=== PATIENT | female | born 1930 | race African-American/Black ===

== ENCOUNTER 2016-06-07 16:51 | Emergency (ER) | payer MEDICARE, BC ==
[~2016-06-07] VITALS: Ht 152.4 cm; Wt 80.0 kg
[~2016-06-07 16:51] MED LIST: AMLO10TA80 PO; ASPI-1035 PO; CLON-457 PO; POTA10TA20 PO; PRED5DRO7 EACHEYE
[2016-06-07 16:55] VITALS: BP 191/90
== END 2016-06-07 22:00 | disposition left against medical advice (07) ==
LOC: ER 21:13
DX: R51 Headache (principal); I10 Essential (primary) hypertension; M79.602 Pain in left arm; M79.605 Pain in left leg; M79.604 Pain in right leg; Z88.0 Allergy status to penicillin; W01.0XXA Fall on same level from slipping, tripping and stumbling without subsequent striking against object, initial encounter; Y92.098 Other place in other non-institutional residence as the place of occurrence of the external cause
CPT/HCPCS: 70450; 99284

== ENCOUNTER 2018-09-25 20:25 | Inpatient (IN) | payer MEDICARE, BC ==
[~2018-09-25] VITALS: Ht 160 cm; Wt 71.2 kg
[2018-09-25 20:25] VITALS: BP 125/77
[~2018-09-25 20:25] MED LIST changes: +AMLO5TAB88 PO; -ASPI-1035 PO; +ASPI-1158 PO; +OLME40TA18 PO
[2018-09-25 21:24] VITALS: BP 125/77
[2018-09-25] MEDS ORDERED: CLONIDINE 0.1MG TABLET PO PRN (21:45)
[2018-09-25] MEDS: CLONIDINE 0.1MG TABLET PO SCH (22:00)
[2018-09-25] MEDS: LACTULOSE 20G/30ML UDC PO SCH (23:00)
[2018-09-25] MEDS: POLYETHYLENE GLYCOL 3350 (17GM) 1 DOSE PACK PO SCH (23:00)
[2018-09-25] MEDS: AMLODIPINE 5MG TABLET PO SCH (23:01)
[2018-09-25] MEDS: ACETAMINOPHEN 325MG TABLET PO PRN (23:30)
[2018-09-26] MEDS: ACETAMINOPHEN 325MG TABLET PO PRN ×3 (03:44→22:20)
[2018-09-26] MEDS: LACTULOSE 20G/30ML UDC PO SCH ×3 (06:10→21:21)
[2018-09-26] MEDS: CLONIDINE 0.1MG TABLET PO SCH ×3 (06:25→21:18)
[2018-09-26 08:19] LABS: HEMATOCRIT. 32.6 % (36.0-48.0); HEMOGLOBIN. 10.9 g/dL (12.0-16.0); MEAN CORPUSCULAR HEMOGLOBIN 30.4 pg (28.0-32.0); MEAN CORPUSCULAR VOLUME 91.3 fL (81.0-99.0); MEAN PLATELET VOLUME 8.7 fl (7.4-10.4); PLATELET 259 x1000/uL (130-400); RED BLOOD CELL COUNT 3.57 mill/uL (4.2-5.4)
[2018-09-26 08:20] VITALS: BP 164/70
[2018-09-26 08:28] LABS: CHLORIDE 103 mEq/L (98-107)
[2018-09-26] MEDS: LOSARTAN POTASSIUM 100 MG TABLET PO SCH (08:59)
[2018-09-26] MEDS: FAMOTIDINE 20MG TABLET PO SCH (08:59)
[2018-09-26] MEDS: CLOPIDOGREL 75MG TABLET PO SCH (08:59)
[2018-09-26] MEDS: AMLODIPINE 5MG TABLET PO SCH ×2 (08:59→21:20)
[2018-09-26] MEDS: DOCUSATE SODIUM 100MG CAPSULE PO SCH ×2 (08:59→17:15)
[2018-09-26] MEDS: ENOXAPARIN 30MG/0.3ML SYR SUBCUT SCH (09:00)
[2018-09-26 15:18] LABS: PLATELET ESTIMATE NORMAL
[2018-09-26] MEDS: CEFTRIAXONE 1 G PREMIX 50 ML IV SCH (18:23)
[2018-09-26 20:00] VITALS: BP 123/54
[2018-09-26] MEDS: POLYETHYLENE GLYCOL 3350 (17GM) 1 DOSE PACK PO SCH (21:00)
[2018-09-27] MEDS: LACTULOSE 20G/30ML UDC PO SCH ×3 (05:31→21:19)
[2018-09-27] MEDS: CLONIDINE 0.1MG TABLET PO SCH ×3 (05:31→21:12)
[2018-09-27 08:10] VITALS: BP 134/54
[2018-09-27] MEDS: DOCUSATE SODIUM 100MG CAPSULE PO SCH (09:00)
[2018-09-27] MEDS: DOCUSATE SODIUM 250MG CAPSULE PO SCH (09:30)
[2018-09-27] MEDS: CLOPIDOGREL 75MG TABLET PO SCH (09:52)
[2018-09-27] MEDS: AMLODIPINE 5MG TABLET PO SCH ×2 (09:52→21:12)
[2018-09-27] MEDS: LOSARTAN POTASSIUM 100 MG TABLET PO SCH (09:52)
[2018-09-27] MEDS: FAMOTIDINE 20MG TABLET PO SCH (09:54)
[2018-09-27] MEDS: ENOXAPARIN 30MG/0.3ML SYR SUBCUT SCH (09:55)
[2018-09-27] MEDS: TRAMADOL 50MG TABLET PO PRN (14:09)
[2018-09-27] MEDS: CEFTRIAXONE 1 G PREMIX 50 ML IV SCH (18:33)
[2018-09-27 20:00] VITALS: BP 169/66
[2018-09-27] MEDS: POLYETHYLENE GLYCOL 3350 (17GM) 1 DOSE PACK PO SCH (21:00)
[2018-09-27 22:00] VITALS: BP 138/59
[2018-09-27 23:56] LABS: CLARITY URINE CLEAR (CLEAR); COLOR URINE YELLOW (YELLOW); KETONES URINE NEGATIVE (NEGATIVE); LEUKOCYTE ESTERASE URINE 2+ (NEGATIVE); NITRITE URINE NEGATIVE (NEGATIVE); OCCULT BLOOD URINE NEGATIVE (NEGATIVE); PH URINE 5.5 (4.5-8.0); PROTEIN URINE 1+ (NEGATIVE); SPECIFIC GRAVITY URINE 1.018 (1.005-1.030); UROBILINOGEN URINE 0.2 E.U./dL (0.2-1.0)
[2018-09-28] MEDS: LACTULOSE 20G/30ML UDC PO SCH ×3 (05:39→22:00)
[2018-09-28] MEDS: CLONIDINE 0.1MG TABLET PO SCH ×3 (05:39→23:55)
[2018-09-28] MEDS: TRAMADOL 50MG TABLET PO PRN ×2 (06:25→23:56)
[2018-09-28 07:53] LABS: HEMATOCRIT. 31.8 % (36.0-48.0); HEMOGLOBIN. 10.6 g/dL (12.0-16.0); MEAN CORPUSCULAR HEMOGLOBIN 30.8 pg (28.0-32.0); MEAN CORPUSCULAR VOLUME 91.9 fL (81.0-99.0); MEAN PLATELET VOLUME 8.4 fl (7.4-10.4); PLATELET 256 x1000/uL (130-400); RED BLOOD CELL COUNT 3.45 mill/uL (4.2-5.4); RED CELL DISTRIBUTION WIDTH 13.8 % (11.6-14.6)
[2018-09-28 08:07] VITALS: BP 132/58
[2018-09-28] MEDS: AMLODIPINE 5MG TABLET PO SCH ×2 (08:30→21:44)
[2018-09-28] MEDS: LOSARTAN POTASSIUM 100 MG TABLET PO SCH (08:30)
[2018-09-28] MEDS: CLOPIDOGREL 75MG TABLET PO SCH (08:30)
[2018-09-28] MEDS: FAMOTIDINE 20MG TABLET PO SCH (08:30)
[2018-09-28] MEDS: ENOXAPARIN 30MG/0.3ML SYR SUBCUT SCH (08:31)
[2018-09-28] MEDS: DOCUSATE SODIUM 250MG CAPSULE PO SCH (08:31)
[2018-09-28 09:02] LABS: PHOSPHORUS 3.5 mg/dL (2.5-4.9)
[2018-09-28 09:12] LABS: PLATELET ESTIMATE NORMAL
[2018-09-28] MEDS ORDERED: ALBUTEROL 6.7GM HFA INHALER ORI PRN (09:30)
[2018-09-28] MEDS ORDERED: ALBUTEROL (0.083%) 2.5MG/3ML NEB HHN PRN (09:45)
[2018-09-28 10:23] LABS: FOLIC ACID (FOLATE) SERUM 16.8 ng/mL (>5.38)
[2018-09-28] MEDS: CEFTRIAXONE 1 G PREMIX 50 ML IV SCH (16:46)
[2018-09-28 20:00] VITALS: BP 141/57
[2018-09-28] MEDS: POLYETHYLENE GLYCOL 3350 (17GM) 1 DOSE PACK PO SCH (21:44)
[2018-09-29] MEDS: CLONIDINE 0.1MG TABLET PO SCH ×3 (05:46→22:56)
[2018-09-29] MEDS: LACTULOSE 20G/30ML UDC PO SCH ×3 (05:46→22:55)
[2018-09-29 08:20] VITALS: BP 126/58
[2018-09-29] MEDS: ENOXAPARIN 30MG/0.3ML SYR SUBCUT SCH (08:57)
[2018-09-29] MEDS: FAMOTIDINE 20MG TABLET PO SCH (08:57)
[2018-09-29] MEDS: CLOPIDOGREL 75MG TABLET PO SCH (08:57)
[2018-09-29] MEDS: DOCUSATE SODIUM 250MG CAPSULE PO SCH (08:58)
[2018-09-29] MEDS: AMLODIPINE 5MG TABLET PO SCH ×2 (08:58→21:59)
[2018-09-29] MEDS: LOSARTAN POTASSIUM 100 MG TABLET PO SCH (08:59)
[2018-09-29 12:28] LABS: BASOPHILS % 1.5 % (0.0-2.0); EOSINOPHILS % 5.1 % (0.0-5.0); HEMATOCRIT. 31.3 % (36.0-48.0); HEMOGLOBIN. 10.7 g/dL (12.0-16.0); LYMPHOCYTES % 31.6 % (20.0-50.0); MEAN CORPUSCULAR HEMOGLOBIN 31.3 pg (28.0-32.0); MEAN CORPUSCULAR VOLUME 91.5 fL (81.0-99.0); MEAN PLATELET VOLUME 8.2 fl (7.4-10.4); MONOCYTES % 13.1 % (2.0-8.0); NEUTROPHILS % 48.7 % (40.0-76.0); PLATELET 290 x1000/uL (130-400); RED BLOOD CELL COUNT 3.42 mill/uL (4.2-5.4); RED CELL DISTRIBUTION WIDTH 14.2 % (11.6-14.6)
[2018-09-29] MEDS: CEFTRIAXONE 1 G PREMIX 50 ML IV SCH (16:42)
[2018-09-29] MEDS: TRAMADOL 50MG TABLET PO PRN (19:12)
[2018-09-29 20:00] VITALS: BP 121/58
[2018-09-29] MEDS: POLYETHYLENE GLYCOL 3350 (17GM) 1 DOSE PACK PO SCH (21:58)
[2018-09-30] MEDS: LACTULOSE 20G/30ML UDC PO SCH ×3 (06:00→22:00)
[2018-09-30] MEDS: CLONIDINE 0.1MG TABLET PO SCH ×3 (06:14→20:52)
[2018-09-30 06:33] LABS: EOSINOPHILS % 5.2 % (0.0-5.0); HEMATOCRIT. 29.4 % (36.0-48.0); HEMOGLOBIN. 9.7 g/dL (12.0-16.0); LYMPHOCYTES % 34.5 % (20.0-50.0); MEAN CORPUSCULAR HEMOGLOBIN 30.5 pg (28.0-32.0); MEAN PLATELET VOLUME 8.7 fl (7.4-10.4); MONOCYTES % 13.1 % (2.0-8.0); NEUTROPHILS % 46.2 % (40.0-76.0); PLATELET 278 x1000/uL (130-400); RED CELL DISTRIBUTION WIDTH 14.2 % (11.6-14.6)
[2018-09-30 08:00] VITALS: BP 152/65
[2018-09-30] MEDS: CLOPIDOGREL 75MG TABLET PO SCH (08:42)
[2018-09-30] MEDS: ENOXAPARIN 30MG/0.3ML SYR SUBCUT SCH (08:42)
[2018-09-30] MEDS: LOSARTAN POTASSIUM 100 MG TABLET PO SCH (08:44)
[2018-09-30] MEDS: DOCUSATE SODIUM 250MG CAPSULE PO SCH (08:44)
[2018-09-30] MEDS: FAMOTIDINE 20MG TABLET PO SCH (08:44)
[2018-09-30] MEDS: AMLODIPINE 5MG TABLET PO SCH ×2 (08:45→20:49)
[2018-09-30] MEDS ORDERED: SODIUM POLYSTYRENE SULFONATE 15 G/60 ML BOT PO SCH (10:00)
[2018-09-30 20:00] VITALS: BP 159/61
[2018-09-30] MEDS: TRAMADOL 50MG TABLET PO PRN (20:48)
[2018-09-30] MEDS: POLYETHYLENE GLYCOL 3350 (17GM) 1 DOSE PACK PO SCH (21:00)
[2018-09-30] MEDS ORDERED: DEXT 5%/0.45% NACL 1000ML 1,000 ML IV SCH (22:15)
[2018-09-30] MEDS: ACETAMINOPHEN 325MG TABLET PO PRN (23:56)
[2018-10-01] MEDS: LACTULOSE 20G/30ML UDC PO SCH ×4 (06:00→21:45)
[2018-10-01] MEDS: CLONIDINE 0.1MG TABLET PO SCH ×3 (06:10→22:33)
[2018-10-01 06:29] LABS: CHLORIDE 104 mEq/L (98-107)
[2018-10-01 06:34] LABS: PHOSPHORUS 3.8 mg/dL (2.5-4.9)
[2018-10-01 06:37] LABS: BASOPHILS % 0.9 % (0.0-2.0); EOSINOPHILS % 5.7 % (0.0-5.0); HEMOGLOBIN. 9.8 g/dL (12.0-16.0); MEAN CORPUSCULAR VOLUME 91.9 fL (81.0-99.0); MEAN PLATELET VOLUME 8.3 fl (7.4-10.4); MONOCYTES % 14.5 % (2.0-8.0); NEUTROPHILS % 40.9 % (40.0-76.0); PLATELET 286 x1000/uL (130-400); RED BLOOD CELL COUNT 3.16 mill/uL (4.2-5.4)
[2018-10-01 07:30] VITALS: BP 148/68
[2018-10-01] MEDS: FAMOTIDINE 20MG TABLET PO SCH (08:30)
[2018-10-01] MEDS: DOCUSATE SODIUM 250MG CAPSULE PO SCH (08:30)
[2018-10-01] MEDS: CLOPIDOGREL 75MG TABLET PO SCH (08:30)
[2018-10-01] MEDS: LOSARTAN POTASSIUM 100 MG TABLET PO SCH (08:30)
[2018-10-01] MEDS: ENOXAPARIN 30MG/0.3ML SYR SUBCUT SCH (08:31)
[2018-10-01] MEDS: AMLODIPINE 5MG TABLET PO SCH ×2 (08:31→21:44)
[2018-10-01] MEDS: ACETAMINOPHEN 325MG TABLET PO PRN ×2 (08:31→21:43)
[2018-10-01 13:00] VITALS: BP 119/61
[2018-10-01 14:00] VITALS: BP 133/57
[2018-10-01] MEDS: TRAMADOL 50MG TABLET PO PRN (14:15)
[2018-10-01 20:00] VITALS: BP 162/73
[2018-10-01] MEDS: POLYETHYLENE GLYCOL 3350 (17GM) 1 DOSE PACK PO SCH (21:45)
[2018-10-02] MEDS: ACETAMINOPHEN 325MG TABLET PO PRN (05:00)
[2018-10-02] MEDS: LACTULOSE 20G/30ML UDC PO SCH ×3 (05:12→22:10)
[2018-10-02] MEDS: CLONIDINE 0.1MG TABLET PO SCH ×3 (05:12→22:10)
[2018-10-02] MEDS ORDERED: TRAMADOL 50MG TABLET PO PRN (05:30)
[2018-10-02 08:00] VITALS: BP 122/61
[2018-10-02] MEDS: DOCUSATE SODIUM 250MG CAPSULE PO SCH (08:52)
[2018-10-02] MEDS: LOSARTAN POTASSIUM 100 MG TABLET PO SCH (08:52)
[2018-10-02] MEDS: CLOPIDOGREL 75MG TABLET PO SCH (08:52)
[2018-10-02] MEDS: AMLODIPINE 5MG TABLET PO SCH ×2 (08:53→20:46)
[2018-10-02] MEDS: FAMOTIDINE 20MG TABLET PO SCH (08:53)
[2018-10-02] MEDS: ENOXAPARIN 30MG/0.3ML SYR SUBCUT SCH (08:53)
[2018-10-02] MEDS: LIDOCAINE 5% PATCH TOP SCH (15:05)
[2018-10-02] MEDS: ACETAMINOPHEN 500MG TABLET PO SCH (16:59)
[2018-10-02 20:00] VITALS: BP 156/75
[2018-10-02] MEDS: POLYETHYLENE GLYCOL 3350 (17GM) 1 DOSE PACK PO SCH (20:46)
[2018-10-02] MEDS: TRAMADOL 50MG TABLET PO SCH (20:47)
[2018-10-03] MEDS: CLONIDINE 0.1MG TABLET PO SCH ×3 (05:30→21:23)
[2018-10-03] MEDS: LACTULOSE 20G/30ML UDC PO SCH (05:30)
[2018-10-03 06:48] LABS: HEMATOCRIT. 30.6 % (36.0-48.0); HEMOGLOBIN. 10.3 g/dL (12.0-16.0); MEAN CORPUSCULAR HEMOGLOBIN 30.9 pg (28.0-32.0); MEAN CORPUSCULAR VOLUME 91.9 fL (81.0-99.0); MEAN PLATELET VOLUME 8.5 fl (7.4-10.4); PLATELET 302 x1000/uL (130-400); RED BLOOD CELL COUNT 3.33 mill/uL (4.2-5.4); RED CELL DISTRIBUTION WIDTH 14.3 % (11.6-14.6)
[2018-10-03 07:01] LABS: CHLORIDE 104 mEq/L (98-107)
[2018-10-03 07:56] VITALS: BP 118/64
[2018-10-03] MEDS: ENOXAPARIN 30MG/0.3ML SYR SUBCUT SCH (08:57)
[2018-10-03] MEDS: TRAMADOL 50MG TABLET PO SCH ×2 (08:58→21:00)
[2018-10-03] MEDS: FAMOTIDINE 20MG TABLET PO SCH (08:59)
[2018-10-03] MEDS: CLOPIDOGREL 75MG TABLET PO SCH (08:59)
[2018-10-03] MEDS: ACETAMINOPHEN 500MG TABLET PO SCH ×3 (08:59→17:55)
[2018-10-03] MEDS: LOSARTAN POTASSIUM 100 MG TABLET PO SCH (08:59)
[2018-10-03] MEDS: DOCUSATE SODIUM 250MG CAPSULE PO SCH (08:59)
[2018-10-03] MEDS: AMLODIPINE 5MG TABLET PO SCH ×2 (08:59→21:24)
[2018-10-03] MEDS: LIDOCAINE 5% PATCH TOP SCH (09:01)
[2018-10-03 09:49] LABS: PLATELET ESTIMATE NORMAL
[2018-10-03 20:00] VITALS: BP 138/64
[2018-10-04] MEDS: ACETAMINOPHEN 325MG TABLET PO PRN (06:40)
[2018-10-04] MEDS: CLONIDINE 0.1MG TABLET PO SCH ×3 (06:41→22:00)
[2018-10-04] MEDS: LIDOCAINE 5% PATCH TOP SCH (09:20)
[2018-10-04] MEDS: ACETAMINOPHEN 500MG TABLET PO SCH ×2 (09:26→13:00)
[2018-10-04] MEDS: TRAMADOL 50MG TABLET PO SCH ×2 (09:26→21:09)
[2018-10-04] MEDS: CLOPIDOGREL 75MG TABLET PO SCH (09:26)
[2018-10-04] MEDS: LOSARTAN POTASSIUM 100 MG TABLET PO SCH (09:27)
[2018-10-04] MEDS: FAMOTIDINE 20MG TABLET PO SCH (09:27)
[2018-10-04] MEDS: ENOXAPARIN 30MG/0.3ML SYR SUBCUT SCH (09:27)
[2018-10-04] MEDS: AMLODIPINE 5MG TABLET PO SCH ×2 (09:27→21:09)
[2018-10-04 20:00] VITALS: BP 125/52
[2018-10-05] MEDS: CLONIDINE 0.1MG TABLET PO SCH ×3 (06:19→21:31)
[2018-10-05 07:13] LABS: EOSINOPHILS % 4.7 % (0.0-5.0); HEMATOCRIT. 30.8 % (36.0-48.0); HEMOGLOBIN. 10.3 g/dL (12.0-16.0); LYMPHOCYTES % 39.6 % (20.0-50.0); MEAN CORPUSCULAR HEMOGLOBIN 30.6 pg (28.0-32.0); MEAN CORPUSCULAR VOLUME 91.3 fL (81.0-99.0); MEAN PLATELET VOLUME 7.8 fl (7.4-10.4); MONOCYTES % 12.3 % (2.0-8.0); NEUTROPHILS % 42.4 % (40.0-76.0); PLATELET 297 x1000/uL (130-400); RED BLOOD CELL COUNT 3.37 mill/uL (4.2-5.4)
[2018-10-05 07:39] LABS: CHLORIDE 102 mEq/L (98-107)
[2018-10-05 08:22] VITALS: BP 159/59
[2018-10-05] MEDS: LIDOCAINE 5% PATCH TOP SCH (10:19)
[2018-10-05] MEDS: FAMOTIDINE 20MG TABLET PO SCH (10:20)
[2018-10-05] MEDS: ENOXAPARIN 30MG/0.3ML SYR SUBCUT SCH (10:20)
[2018-10-05] MEDS: CLOPIDOGREL 75MG TABLET PO SCH (10:20)
[2018-10-05] MEDS: LOSARTAN POTASSIUM 100 MG TABLET PO SCH (10:21)
[2018-10-05] MEDS: TRAMADOL 50MG TABLET PO SCH ×2 (10:21→21:17)
[2018-10-05] MEDS: AMLODIPINE 5MG TABLET PO SCH ×2 (10:21→21:16)
[2018-10-05] MEDS: ACETAMINOPHEN 500MG TABLET PO SCH ×2 (13:00→18:08)
[2018-10-05 13:15] LABS: 25-HYDROXY VITAMIN D3 26 ng/mL (.)
[2018-10-05] MEDS: ERGOCALCIFEROL 50000UNITS CAPSULE PO SCH (14:32)
[2018-10-05 20:00] VITALS: BP 168/66
[2018-10-06] MEDS: BISACODYL 5MG TABLET PO PRN (05:37)
[2018-10-06] MEDS: CLONIDINE 0.1MG TABLET PO SCH ×3 (05:37→21:17)
[2018-10-06 08:00] VITALS: BP 143/68
[2018-10-06] MEDS: TRAMADOL 50MG TABLET PO SCH ×3 (09:00→21:16)
[2018-10-06] MEDS: LOSARTAN POTASSIUM 100 MG TABLET PO SCH (10:07)
[2018-10-06] MEDS: ACETAMINOPHEN 500MG TABLET PO SCH ×3 (10:07→17:00)
[2018-10-06] MEDS: CLOPIDOGREL 75MG TABLET PO SCH (10:07)
[2018-10-06] MEDS: ENOXAPARIN 30MG/0.3ML SYR SUBCUT SCH (10:09)
[2018-10-06] MEDS: AMLODIPINE 5MG TABLET PO SCH ×2 (10:09→20:23)
[2018-10-06] MEDS: LIDOCAINE 5% PATCH TOP SCH (10:11)
[2018-10-06 20:00] VITALS: BP 121/55
[2018-10-06] MEDS ORDERED: NA PHOS,M-B/NA PHOS,DI-BA ENEMA 118ML PR PRN (23:00)
[2018-10-06] MEDS ORDERED: NA PHOS,M-B/NA PHOS,DI-BA ENEMA 118ML RC PRN (23:00)
[2018-10-07] MEDS: CLONIDINE 0.1MG TABLET PO SCH ×3 (06:00→22:00)
[2018-10-07 08:00] VITALS: BP 133/41
[2018-10-07] MEDS ORDERED: TRAMADOL 50MG TABLET PO PRN (09:45)
[2018-10-07] MEDS: LOSARTAN POTASSIUM 100 MG TABLET PO SCH (10:48)
[2018-10-07] MEDS: CLOPIDOGREL 75MG TABLET PO SCH (10:50)
[2018-10-07] MEDS: AMLODIPINE 5MG TABLET PO SCH ×2 (10:50→20:21)
[2018-10-07] MEDS: LIDOCAINE 5% PATCH TOP SCH (10:50)
[2018-10-07] MEDS: ENOXAPARIN 30MG/0.3ML SYR SUBCUT SCH (10:52)
[2018-10-07] MEDS: TRAMADOL 50MG TABLET PO SCH ×2 (10:52→20:22)
[2018-10-07 20:00] VITALS: BP 114/73
[2018-10-07] MEDS ORDERED: TRAMADOL 50MG TABLET PO SCH (21:05)
[2018-10-08] MEDS: CLONIDINE 0.1MG TABLET PO SCH ×3 (06:00→23:08)
[2018-10-08] MEDS: ENOXAPARIN 30MG/0.3ML SYR SUBCUT SCH (08:28)
[2018-10-08] MEDS: LOSARTAN POTASSIUM 100 MG TABLET PO SCH (08:29)
[2018-10-08] MEDS: TRAMADOL 50MG TABLET PO SCH ×2 (08:30→21:17)
[2018-10-08] MEDS: CLOPIDOGREL 75MG TABLET PO SCH (08:31)
[2018-10-08] MEDS: AMLODIPINE 5MG TABLET PO SCH ×2 (08:31→21:16)
[2018-10-08] MEDS: LIDOCAINE 5% PATCH TOP SCH (08:31)
[2018-10-08 08:34] VITALS: BP 111/59
[2018-10-08 16:38] LABS: BASOPHILS % 1.1 % (0.0-2.0); EOSINOPHILS % 1.6 % (0.0-5.0); HEMATOCRIT. 31.4 % (36.0-48.0); HEMOGLOBIN. 10.4 g/dL (12.0-16.0); LYMPHOCYTES % 19.7 % (20.0-50.0); MEAN CORPUSCULAR HEMOGLOBIN 30.6 pg (28.0-32.0); MEAN CORPUSCULAR VOLUME 91.9 fL (81.0-99.0); MONOCYTES % 13.8 % (2.0-8.0); NEUTROPHILS % 63.8 % (40.0-76.0); PLATELET 306 x1000/uL (130-400); RED BLOOD CELL COUNT 3.42 mill/uL (4.2-5.4); RED CELL DISTRIBUTION WIDTH 14.2 % (11.6-14.6)
[2018-10-08 16:43] LABS: CHLORIDE 102 mEq/L (98-107)
[2018-10-08 16:50] LABS: PHOSPHORUS 4.9 mg/dL (2.5-4.9)
[2018-10-08 20:00] VITALS: BP 128/63
[2018-10-09] MEDS: CLONIDINE 0.1MG TABLET PO SCH ×2 (05:55→13:01)
[2018-10-09 06:22] LABS: HEMOGLOBIN. 10.2 g/dL (12.0-16.0); MEAN CORPUSCULAR VOLUME 91.5 fL (81.0-99.0); MEAN PLATELET VOLUME 8.5 fl (7.4-10.4); PLATELET 282 x1000/uL (130-400); RED BLOOD CELL COUNT 3.28 mill/uL (4.2-5.4); RED CELL DISTRIBUTION WIDTH 14.1 % (11.6-14.6)
[2018-10-09 06:27] LABS: CHLORIDE 103 mEq/L (98-107)
[2018-10-09 08:00] VITALS: BP 113/52
[2018-10-09] MEDS: CLOPIDOGREL 75MG TABLET PO SCH (10:55)
[2018-10-09] MEDS: LOSARTAN POTASSIUM 100 MG TABLET PO SCH (10:56)
[2018-10-09] MEDS: TRAMADOL 50MG TABLET PO SCH ×2 (10:56→21:06)
[2018-10-09] MEDS: AMLODIPINE 5MG TABLET PO SCH ×2 (10:56→21:05)
[2018-10-09] MEDS: ENOXAPARIN 30MG/0.3ML SYR SUBCUT SCH (10:57)
[2018-10-09] MEDS: LIDOCAINE 5% PATCH TOP SCH (10:57)
[2018-10-09 11:14] LABS: PLATELET ESTIMATE NORMAL
[2018-10-09] MEDS: ACETAMINOPHEN 325MG TABLET PO PRN (12:43)
[2018-10-10] MEDS: CLONIDINE 0.1MG TABLET PO SCH ×4 (00:27→22:56)
[2018-10-10 06:52] LABS: HEMATOCRIT. 29.4 % (36.0-48.0); HEMOGLOBIN. 9.9 g/dL (12.0-16.0); MEAN CORPUSCULAR VOLUME 91.7 fL (81.0-99.0); MEAN PLATELET VOLUME 8.4 fl (7.4-10.4); PLATELET 264 x1000/uL (130-400); RED BLOOD CELL COUNT 3.21 mill/uL (4.2-5.4)
[2018-10-10 07:54] VITALS: BP 121/49
[2018-10-10] MEDS: CLOPIDOGREL 75MG TABLET PO SCH (08:02)
[2018-10-10] MEDS: ENOXAPARIN 30MG/0.3ML SYR SUBCUT SCH (08:02)
[2018-10-10] MEDS: AMLODIPINE 5MG TABLET PO SCH ×2 (08:03→21:36)
[2018-10-10] MEDS: TRAMADOL 50MG TABLET PO SCH ×2 (08:03→21:38)
[2018-10-10] MEDS: LIDOCAINE 5% PATCH TOP SCH (08:03)
[2018-10-10 11:32] LABS: PLATELET ESTIMATE NORMAL
[2018-10-10 20:00] VITALS: BP_SYST 132; BP_SYST 157; BP_DIAS 63; BP_DIAS 69
[2018-10-11] MEDS: CLONIDINE 0.1MG TABLET PO SCH ×3 (06:32→21:37)
[2018-10-11] MEDS: BISACODYL 5MG TABLET PO PRN (06:47)
[2018-10-11 08:00] VITALS: BP 123/54
[2018-10-11 08:21] LABS: HEMATOCRIT. 28.5 % (36.0-48.0); HEMOGLOBIN. 9.5 g/dL (12.0-16.0); MEAN CORPUSCULAR HEMOGLOBIN 30.4 pg (28.0-32.0); MEAN CORPUSCULAR VOLUME 91.5 fL (81.0-99.0); MEAN PLATELET VOLUME 8.2 fl (7.4-10.4); PLATELET 237 x1000/uL (130-400); RED BLOOD CELL COUNT 3.12 mill/uL (4.2-5.4); RED CELL DISTRIBUTION WIDTH 14.2 % (11.6-14.6)
[2018-10-11] MEDS: CLOPIDOGREL 75MG TABLET PO SCH (09:22)
[2018-10-11] MEDS: AMLODIPINE 5MG TABLET PO SCH ×2 (09:23→21:37)
[2018-10-11] MEDS: TRAMADOL 50MG TABLET PO SCH ×2 (09:23→21:38)
[2018-10-11] MEDS: LIDOCAINE 5% PATCH TOP SCH (09:24)
[2018-10-11] MEDS: ENOXAPARIN 30MG/0.3ML SYR SUBCUT SCH (09:28)
[2018-10-11] MEDS ORDERED: ONDANSETRON 4MG ODT PO PRN (10:15)
[2018-10-11 16:29] LABS: PLATELET ESTIMATE NORMAL
[2018-10-11 20:00] VITALS: BP 133/59
[2018-10-12] MEDS: CLONIDINE 0.1MG TABLET PO SCH ×3 (05:20→23:51)
[2018-10-12 08:43] VITALS: BP 134/61
[2018-10-12] MEDS: TRAMADOL 50MG TABLET PO SCH ×2 (09:09→21:00)
[2018-10-12] MEDS: AMLODIPINE 5MG TABLET PO SCH ×2 (09:09→21:28)
[2018-10-12] MEDS: CLOPIDOGREL 75MG TABLET PO SCH (09:09)
[2018-10-12] MEDS: ENOXAPARIN 30MG/0.3ML SYR SUBCUT SCH (09:10)
[2018-10-12] MEDS: LIDOCAINE 5% PATCH TOP SCH (09:10)
[2018-10-12] MEDS ORDERED: REGADENOSON 0.4 MG/5 ML IV ONE (09:38)
[2018-10-12] MEDS: ERGOCALCIFEROL 50000UNITS CAPSULE PO SCH (13:30)
[2018-10-12 20:00] VITALS: BP 123/53
[2018-10-13] MEDS: CLONIDINE 0.1MG TABLET PO SCH ×2 (05:04→14:29)
[2018-10-13] MEDS: CLOPIDOGREL 75MG TABLET PO SCH (09:06)
[2018-10-13] MEDS: AMLODIPINE 5MG TABLET PO SCH (09:06)
[2018-10-13] MEDS: ENOXAPARIN 30MG/0.3ML SYR SUBCUT SCH (09:07)
[2018-10-13] MEDS: LIDOCAINE 5% PATCH TOP SCH (09:08)
[2018-10-13 09:29] VITALS: BP 115/50
[2018-10-13 10:48] VITALS: BP 115/50
== END 2018-10-13 17:15 | disposition home health service (06) | DRG 65 ==
PROVIDERS: ADMIT Physical Medicine & Rehabilitation Spinal Cord Injury Medicine; ATTEND Internal Medicine
DX: I63.9 Cerebral infarction, unspecified (principal); E46 Unspecified protein-calorie malnutrition; I13.0 Hypertensive heart and chronic kidney disease with heart failure and stage 1 through stage 4 chronic kidney disease, or unspecified chronic kidney disease; I50.32 Chronic diastolic (congestive) heart failure; N39.0 Urinary tract infection, site not specified; N17.9 Acute kidney failure, unspecified; M62.82 Rhabdomyolysis; D64.9 Anemia, unspecified; F01.50 Vascular dementia, unspecified severity, without behavioral disturbance, psychotic disturbance, mood disturbance, and anxiety; G89.29 Other chronic pain; D72.819 Decreased white blood cell count, unspecified; E87.5 Hyperkalemia; I73.9 Peripheral vascular disease, unspecified; I27.20 Pulmonary hypertension, unspecified; K59.00 Constipation, unspecified; M17.0 Bilateral primary osteoarthritis of knee; N18.9 Chronic kidney disease, unspecified; M81.0 Age-related osteoporosis without current pathological fracture; M51.36 Other intervertebral disc degeneration, lumbar region; M48.07 Spinal stenosis, lumbosacral region; M48.061 Spinal stenosis, lumbar region without neurogenic claudication; M48.04 Spinal stenosis, thoracic region; M48.02 Spinal stenosis, cervical region; M47.817 Spondylosis without myelopathy or radiculopathy, lumbosacral region; M47.816 Spondylosis without myelopathy or radiculopathy, lumbar region; M47.812 Spondylosis without myelopathy or radiculopathy, cervical region; M43.17 Spondylolisthesis, lumbosacral region; M43.16 Spondylolisthesis, lumbar region; M19.90 Unspecified osteoarthritis, unspecified site; M75.02 Adhesive capsulitis of left shoulder; M75.01 Adhesive capsulitis of right shoulder; Z86.73 Personal history of transient ischemic attack (TIA), and cerebral infarction without residual deficits; Z68.27 Body mass index [BMI] 27.0-27.9, adult
CPT/HCPCS: 36415; 80048; 81003; 82306; 82607; 82728; 82746; 83540; 83550; 83735; 84100; 84134; 84443; 92523; 92610; 97110; 97116; 97140; 97150; 97162; 97166; 97530; 97535; J0696; J1650; J2785; Q0162

== ENCOUNTER 2018-10-25 14:09 | Inpatient (IN) | payer MEDICARE, BC ==
[~2018-10-25] VITALS: Ht 170.2 cm; Wt 71.7 kg
[~2018-10-25 14:09] MED LIST changes: -AMLO10TA80 PO; -CLON-457 PO; -POTA10TA20 PO
[2018-10-25] MEDS ORDERED: DEXTROSE 50% WATER 50ML SYRINGE IV ONE (14:28)
[2018-10-25] MEDS ORDERED: SODIUM CHLORIDE 0.9% 1,000 ML IV ONE (14:52)
[2018-10-25 15:08] LABS: BASOPHILS % 0.8 % (0.0-2.0); EOSINOPHILS % 1.8 % (0.0-5.0); HEMATOCRIT. 33.5 % (36.0-48.0); HEMOGLOBIN. 11.1 g/dL (12.0-16.0); LYMPHOCYTES % 26.8 % (20.0-50.0); MEAN CORPUSCULAR HEMOGLOBIN 30.4 pg (28.0-32.0); MEAN CORPUSCULAR VOLUME 91.5 fL (81.0-99.0); MEAN PLATELET VOLUME 8.2 fl (7.4-10.4); MONOCYTES % 10.8 % (2.0-8.0); NEUTROPHILS % 59.8 % (40.0-76.0); PLATELET 254 x1000/uL (130-400); RED BLOOD CELL COUNT 3.66 mill/uL (4.2-5.4); RED CELL DISTRIBUTION WIDTH 14.3 % (11.6-14.6)
[2018-10-25 15:11] LABS: CHLORIDE 109 mEq/L (98-107)
[2018-10-25 15:13] LABS: PROTHROMBIN TIME 10.7 sec (9.6-11.0)
[2018-10-25 19:51] LABS: CLARITY URINE CLEAR (CLEAR); COLOR URINE YELLOW (YELLOW); KETONES URINE 1+ (NEGATIVE); LEUKOCYTE ESTERASE URINE 2+ (NEGATIVE); NITRITE URINE NEGATIVE (NEGATIVE); OCCULT BLOOD URINE NEGATIVE (NEGATIVE); PROTEIN URINE 2+ (NEGATIVE); SPECIFIC GRAVITY URINE 1.019 (1.005-1.030); UROBILINOGEN URINE 0.2 E.U./dL (0.2-1.0)
[2018-10-25] MEDS ORDERED: ASPIRIN 81MG TABLET PO ONE (20:30)
[2018-10-25] MEDS ORDERED: CEFTRIAXONE 1 G PREMIX 50 ML IV ONE (20:30)
[2018-10-25] MEDS ORDERED: ACETAMINOPHEN 325MG TABLET PO ONE (21:30)
[2018-10-25 22:03] VITALS: BP 153/78
[2018-10-26] MEDS ORDERED: CLOP75TA4 PO (00:40)
[2018-10-26] MEDS ORDERED: AMLODIPINE 5MG TABLET PO SCH (01:00)
[2018-10-26] MEDS: AMLODIPINE 5MG TABLET PO SCH (02:06)
[2018-10-26 04:00] VITALS: BP 130/75
[2018-10-26 08:00] VITALS: BP 145/70
[2018-10-26] MEDS ORDERED: OLMESARTAN MEDOXOMIL 40 MG PO SCH (09:00)
[2018-10-26] MEDS ORDERED: PREDNISOLONE ACETATE 1% OPHTH DROPS 1ML EACHEYE SCH (09:00)
[2018-10-26] MEDS: CLOPIDOGREL 75MG TABLET PO SCH (09:33)
[2018-10-26] MEDS: LOSARTAN POTASSIUM 100 MG TABLET PO SCH (09:33)
[2018-10-26] MEDS: ASPIRIN 81MG EC TABLET PO SCH (09:33)
[2018-10-26 12:00] VITALS: BP 105/68
[2018-10-26 16:00] VITALS: BP 155/71
[2018-10-26 20:00] VITALS: BP 144/61
[2018-10-26] MEDS: DOCUSATE SODIUM 250MG CAPSULE PO SCH (21:02)
[2018-10-26] MEDS: ACETAMINOPHEN 325MG TABLET PO PRN (21:03)
[2018-10-27] VITALS (8 sets, daily range): BP systolic 132–168; BP diastolic 59–73
[2018-10-27] MEDS ORDERED: LEVOFLOXACIN 250MG PREMIX 50 ML IV SCH (08:00)
[2018-10-27] MEDS ORDERED: LACTULOSE 20G/30ML UDC PO SCH (08:45)
[2018-10-27] MEDS: ASPIRIN 81MG EC TABLET PO SCH (09:16)
[2018-10-27] MEDS: LOSARTAN POTASSIUM 100 MG TABLET PO SCH (09:16)
[2018-10-27] MEDS: AMLODIPINE 5MG TABLET PO SCH (09:18)
[2018-10-27] MEDS: CLOPIDOGREL 75MG TABLET PO SCH (09:18)
[2018-10-27] MEDS: DEXT 5%/0.45% NACL 1000ML 1,000 ML IV SCH (09:19)
[2018-10-27] MEDS: LEVOFLOXACIN 250MG PREMIX 50 ML IV SCH (09:21)
[2018-10-27] MEDS: DOCUSATE SODIUM 250MG CAPSULE PO SCH (21:18)
[2018-10-27] MEDS: ACETAMINOPHEN 325MG TABLET PO PRN (21:18)
[2018-10-28] VITALS: BP 152/76
[2018-10-28 04:00] VITALS: BP 163/57
[2018-10-28] MEDS: DEXT 5%/0.45% NACL 1000ML 1,000 ML IV SCH (06:09)
[2018-10-28 06:53] LABS: CHLORIDE 105 mEq/L (98-107)
[2018-10-28 06:56] LABS: BASOPHILS % 0.5 % (0.0-2.0); EOSINOPHILS % 2.3 % (0.0-5.0); HEMATOCRIT. 39.1 % (36.0-48.0); HEMOGLOBIN. 12.9 g/dL (12.0-16.0); LYMPHOCYTES % 18.2 % (20.0-50.0); MEAN CORPUSCULAR HEMOGLOBIN 30.3 pg (28.0-32.0); MEAN CORPUSCULAR VOLUME 91.9 fL (81.0-99.0); MEAN PLATELET VOLUME 8.9 fl (7.4-10.4); MONOCYTES % 12.3 % (2.0-8.0); NEUTROPHILS % 66.7 % (40.0-76.0); PLATELET 244 x1000/uL (130-400); RED BLOOD CELL COUNT 4.26 mill/uL (4.2-5.4); RED CELL DISTRIBUTION WIDTH 14.4 % (11.6-14.6)
[2018-10-28 08:00] VITALS: BP 151/73
[2018-10-28] MEDS: LEVOFLOXACIN 250MG PREMIX 50 ML IV SCH (09:16)
[2018-10-28] MEDS: LOSARTAN POTASSIUM 100 MG TABLET PO SCH (11:39)
[2018-10-28] MEDS: CLOPIDOGREL 75MG TABLET PO SCH (11:41)
[2018-10-28] MEDS: AMLODIPINE 10MG TABLET PO SCH (11:41)
[2018-10-28] MEDS: ASPIRIN 81MG EC TABLET PO SCH (11:41)
[2018-10-28 12:00] VITALS: BP 143/69
[2018-10-28 16:00] VITALS: BP 99/69
[2018-10-28 16:30] LABS: T4 FREE 1.22 ng/dL (0.76-1.46)
[2018-10-28 16:53] LABS: VITAMIN B12 SERUM >2000 pg/mL pg/mL (211-911)
[2018-10-28 16:58] LABS: FOLIC ACID (FOLATE) SERUM > 20.00 ng/mL (>5.38)
[2018-10-28 20:00] VITALS: BP 176/83
[2018-10-28] MEDS: DOCUSATE SODIUM 250MG CAPSULE PO SCH (21:42)
[2018-10-28] MEDS: CLONIDINE 0.1MG TABLET PO PRN (22:24)
[2018-10-28] MEDS: ACETAMINOPHEN 325MG TABLET PO PRN (22:31)
[2018-10-29] VITALS (7 sets, daily range): BP systolic 124–169; BP diastolic 67–79
[2018-10-29] MEDS: DEXT 5%/0.45% NACL 1000ML 1,000 ML IV SCH ×2 (01:58→20:54)
[2018-10-29] MEDS: AMLODIPINE 10MG TABLET PO SCH (09:00)
[2018-10-29] MEDS: ASPIRIN 81MG EC TABLET PO SCH (09:00)
[2018-10-29] MEDS: CLOPIDOGREL 75MG TABLET PO SCH (09:00)
[2018-10-29] MEDS: LOSARTAN POTASSIUM 100 MG TABLET PO SCH (09:00)
[2018-10-29] MEDS: LEVOFLOXACIN 250MG PREMIX 50 ML IV SCH (10:06)
[2018-10-29 11:18] LABS: CHLORIDE 103 mEq/L (98-107)
[2018-10-29 11:27] LABS: BASOPHILS % 0.4 % (0.0-2.0); EOSINOPHILS % 1.4 % (0.0-5.0); HEMATOCRIT. 36.4 % (36.0-48.0); HEMOGLOBIN. 12.1 g/dL (12.0-16.0); LYMPHOCYTES % 16.8 % (20.0-50.0); MEAN CORPUSCULAR HEMOGLOBIN 30.7 pg (28.0-32.0); MEAN CORPUSCULAR VOLUME 92.2 fL (81.0-99.0); MEAN PLATELET VOLUME 8.5 fl (7.4-10.4); MONOCYTES % 14.8 % (2.0-8.0); NEUTROPHILS % 66.6 % (40.0-76.0); PLATELET 201 x1000/uL (130-400); RED BLOOD CELL COUNT 3.95 mill/uL (4.2-5.4); RED CELL DISTRIBUTION WIDTH 14.2 % (11.6-14.6)
[2018-10-29] MEDS: ATORVASTATIN CALCIUM 40MG TABLET PO SCH (20:23)
[2018-10-29] MEDS: TRAMADOL 50MG TABLET PO PRN ×2 (20:24→22:30)
[2018-10-29] MEDS: DOCUSATE SODIUM 250MG CAPSULE PO SCH (20:25)
[2018-10-29] MEDS ORDERED: MORPHINE SULFATE 2 MG/ML CPJ (NOT FOR IM USE) IV PRN (20:45)
[2018-10-30] VITALS: BP 136/68
[2018-10-30 04:00] VITALS: BP 151/66
[2018-10-30 08:00] VITALS: BP 152/65
[2018-10-30] MEDS: ASPIRIN 81MG EC TABLET PO SCH (09:00)
[2018-10-30] MEDS: CLOPIDOGREL 75MG TABLET PO SCH (09:00)
[2018-10-30] MEDS: LOSARTAN POTASSIUM 100 MG TABLET PO SCH (09:00)
[2018-10-30] MEDS: AMLODIPINE 10MG TABLET PO SCH (09:00)
[2018-10-30 12:00] VITALS: BP_SYST 128; BP_DIAS 70; BP_DIAS 76
[2018-10-30] MEDS: LEVOFLOXACIN 250MG PREMIX 50 ML IV SCH (14:06)
[2018-10-30] MEDS: DEXT 5%/0.45% NACL 1000ML 1,000 ML IV SCH (14:11)
[2018-10-30] MEDS ORDERED: MORPHINE SULFATE 2 MG/ML CPJ (NOT FOR IM USE) IV PRN (14:45)
[2018-10-30 16:00] VITALS: BP 116/60
[2018-10-30 20:00] VITALS: BP 122/54
[2018-10-30] MEDS: ATORVASTATIN CALCIUM 40MG TABLET PO SCH (20:49)
[2018-10-30] MEDS: DOCUSATE SODIUM 250MG CAPSULE PO SCH (20:49)
[2018-10-31] VITALS: BP 172/74
[2018-10-31] MEDS: CLONIDINE 0.1MG TABLET PO PRN (00:08)
[2018-10-31] MEDS: TRAMADOL 50MG TABLET PO PRN ×2 (00:08→20:50)
[2018-10-31] MEDS: DEXT 5%/0.45% NACL 1000ML 1,000 ML IV SCH (03:40)
[2018-10-31 04:00] VITALS: BP 127/55
[2018-10-31 08:00] VITALS: BP 124/54
[2018-10-31] MEDS: LEVOFLOXACIN 250MG PREMIX 50 ML IV SCH (08:44)
[2018-10-31] MEDS: LOSARTAN POTASSIUM 100 MG TABLET PO SCH (08:44)
[2018-10-31] MEDS: ASPIRIN 81MG EC TABLET PO SCH (08:44)
[2018-10-31] MEDS: AMLODIPINE 10MG TABLET PO SCH (08:45)
[2018-10-31] MEDS: CLOPIDOGREL 75MG TABLET PO SCH (08:45)
[2018-10-31 12:00] VITALS: BP 117/51
[2018-10-31 13:09] LABS: HEMATOCRIT. 29.5 % (36.0-48.0); MEAN CORPUSCULAR HEMOGLOBIN 30.7 pg (28.0-32.0); MEAN CORPUSCULAR VOLUME 90.9 fL (81.0-99.0); MEAN PLATELET VOLUME 8.4 fl (7.4-10.4); PLATELET 234 x1000/uL (130-400); RED BLOOD CELL COUNT 3.25 mill/uL (4.2-5.4); RED CELL DISTRIBUTION WIDTH 14.1 % (11.6-14.6)
[2018-10-31 13:59] LABS: PLATELET ESTIMATE NORMAL
[2018-10-31 20:00] VITALS: BP 120/56
[2018-10-31] MEDS: ATORVASTATIN CALCIUM 40MG TABLET PO SCH (20:50)
[2018-10-31] MEDS: DOCUSATE SODIUM 250MG CAPSULE PO SCH (20:50)
[2018-11-01] VITALS: BP 115/68
[2018-11-01] MEDS: ACETAMINOPHEN 325MG TABLET PO PRN (00:24)
[2018-11-01 04:00] VITALS: BP 118/69
[2018-11-01] MEDS: TRAMADOL 50MG TABLET PO PRN ×2 (05:23→17:52)
[2018-11-01 08:00] VITALS: BP 150/63
[2018-11-01] MEDS: AMLODIPINE 10MG TABLET PO SCH (09:14)
[2018-11-01] MEDS: LOSARTAN POTASSIUM 100 MG TABLET PO SCH (09:14)
[2018-11-01] MEDS: ASPIRIN 81MG EC TABLET PO SCH (09:14)
[2018-11-01] MEDS: CLOPIDOGREL 75MG TABLET PO SCH (09:14)
[2018-11-01] MEDS: LEVOFLOXACIN 250MG TABLET PO SCH (11:07)
[2018-11-01 12:00] VITALS: BP 150/60
[2018-11-01 16:00] VITALS: BP 138/79
[2018-11-01 20:00] VITALS: BP 118/56
[2018-11-01] MEDS: DOCUSATE SODIUM 250MG CAPSULE PO SCH (21:24)
[2018-11-01] MEDS: ATORVASTATIN CALCIUM 40MG TABLET PO SCH (21:24)
[2018-11-02] VITALS (7 sets, daily range): BP systolic 104–157; BP diastolic 53–76
[2018-11-02] MEDS: ASPIRIN 81MG EC TABLET PO SCH (08:59)
[2018-11-02] MEDS: CLOPIDOGREL 75MG TABLET PO SCH (08:59)
[2018-11-02] MEDS: AMLODIPINE 10MG TABLET PO SCH (08:59)
[2018-11-02] MEDS: LOSARTAN POTASSIUM 100 MG TABLET PO SCH (08:59)
[2018-11-02] MEDS: LEVOFLOXACIN 250MG TABLET PO SCH (12:48)
[2018-11-05 13:14] LABS: BARBITURATE SCREEN Negative ug/mL (Cutoff:0.1); BENZODIAZEPINE SCREEN Negative ng/mL (Cutoff:20); OPIATES SCREEN Negative ng/mL (Cutoff:5); PHENCYCLIDINE SCREEN Negative ng/mL (Cutoff:8)
== END 2018-11-02 21:05 | DRG 64 ==
LOC: ER 14:09 → 7WST 18:39 → ENRESERV 21:23
PROVIDERS: ADMIT Internal Medicine; ATTEND Internal Medicine
DX: I63.9 Cerebral infarction, unspecified (principal); G93.41 Metabolic encephalopathy; G82.50 Quadriplegia, unspecified; I50.32 Chronic diastolic (congestive) heart failure; I13.0 Hypertensive heart and chronic kidney disease with heart failure and stage 1 through stage 4 chronic kidney disease, or unspecified chronic kidney disease; N17.9 Acute kidney failure, unspecified; G81.94 Hemiplegia, unspecified affecting left nondominant side; E86.0 Dehydration; N18.9 Chronic kidney disease, unspecified; M48.061 Spinal stenosis, lumbar region without neurogenic claudication; M48.02 Spinal stenosis, cervical region; M17.0 Bilateral primary osteoarthritis of knee; F03.90 Unspecified dementia, unspecified severity, without behavioral disturbance, psychotic disturbance, mood disturbance, and anxiety; I27.20 Pulmonary hypertension, unspecified; I73.9 Peripheral vascular disease, unspecified; K59.00 Constipation, unspecified; M19.012 Primary osteoarthritis, left shoulder; M19.011 Primary osteoarthritis, right shoulder; M75.02 Adhesive capsulitis of left shoulder; M75.01 Adhesive capsulitis of right shoulder; M81.0 Age-related osteoporosis without current pathological fracture; R13.10 Dysphagia, unspecified; R47.01 Aphasia; G89.29 Other chronic pain; R47.1 Dysarthria and anarthria; Z86.73 Personal history of transient ischemic attack (TIA), and cerebral infarction without residual deficits; Z79.02 Long term (current) use of antithrombotics/antiplatelets; Z79.899 Other long term (current) drug therapy; Z88.0 Allergy status to penicillin; Z88.6 Allergy status to analgesic agent
CPT/HCPCS: 36415; 70544; 70553; 71045; 73030; 73560; 74018; 80048; 80061; 80076; 80307; 80320; 81003; 82140; 82607; 82746; 82962; 83036; 84439; 84443; 84481; 84484; 92523; 92610; 93005; 93970; 96365; 97110; 97112; 97140; 97162; 97166; 97530; 97535; 99285; C1893; J0696; J1956; J2270; J7030; G0480

== ENCOUNTER 2018-11-22 13:51 | Inpatient (IN) | payer MEDICARE, BC ==
[~2018-11-22] VITALS: Ht 154.9 cm; Wt 64.9 kg
[~2018-11-22 13:51] MED LIST changes: +CLOP75TA4 PO; -PRED5DRO7 EACHEYE
[2018-11-22 16:38] LABS: BASOPHILS % 0.8 % (0.0-2.0); EOSINOPHILS % 2.3 % (0.0-5.0); HEMATOCRIT. 33.6 % (36.0-48.0); MEAN CORPUSCULAR HEMOGLOBIN 29.6 pg (28.0-32.0); MEAN CORPUSCULAR VOLUME 90.4 fL (81.0-99.0); MEAN PLATELET VOLUME 7.8 fl (7.4-10.4); MONOCYTES % 9.3 % (2.0-8.0); NEUTROPHILS % 67.6 % (40.0-76.0); PLATELET 415 x1000/uL (130-400); RED BLOOD CELL COUNT 3.71 mill/uL (4.2-5.4); RED CELL DISTRIBUTION WIDTH 13.8 % (11.6-14.6)
[2018-11-22 16:40] LABS: CHLORIDE 105 mEq/L (98-107)
[2018-11-22 18:11] LABS: CLARITY URINE CLOUDY (CLEAR); COLOR URINE DARK YELLOW (YELLOW); KETONES URINE TRACE (NEGATIVE); LEUKOCYTE ESTERASE URINE 3+ (NEGATIVE); NITRITE URINE NEGATIVE (NEGATIVE); OCCULT BLOOD URINE 2+ (NEGATIVE); PROTEIN URINE 1+ (NEGATIVE); SPECIFIC GRAVITY URINE 1.021 (1.005-1.030)
[2018-11-22 22:15] VITALS: BP_SYST 143; BP_SYST 146; BP_DIAS 68
[2018-11-23 04:00] VITALS: BP 119/52
[2018-11-23 05:22] VITALS: BP 119/52
[2018-11-23] MEDS ORDERED: NON FORMULARY PATIENT HOME MED XX SCH (06:30)
[2018-11-23 08:00] VITALS: BP 121/55
[2018-11-23] MEDS: ASPIRIN 81MG TABLET PO SCH (10:35)
[2018-11-23] MEDS: CLOPIDOGREL 75MG TABLET PO SCH (10:35)
[2018-11-23] MEDS: AMLODIPINE 5MG TABLET PO SCH (10:36)
[2018-11-23] MEDS: TRAMADOL 50MG TABLET PO PRN (10:37)
[2018-11-23 12:00] VITALS: BP 125/54
[2018-11-23 16:00] VITALS: BP 109/40
[2018-11-23] MEDS: LOSARTAN POTASSIUM 100 MG TABLET PO SCH (18:03)
[2018-11-23 20:00] VITALS: BP 150/62
[2018-11-23] MEDS: DOCUSATE SODIUM 250MG CAPSULE PO SCH (21:06)
[2018-11-23] MEDS: NITROFURANTOIN 100MG M/M CAPSULE PO SCH (21:07)
[2018-11-24] VITALS: BP 145/63
[2018-11-24] MEDS: TRAMADOL 50MG TABLET PO PRN ×2 (01:05→22:56)
[2018-11-24 04:00] VITALS: BP 149/75
[2018-11-24 08:00] VITALS: BP 140/70
[2018-11-24] MEDS: AMLODIPINE 5MG TABLET PO SCH (09:52)
[2018-11-24] MEDS: ASPIRIN 81MG TABLET PO SCH (09:52)
[2018-11-24] MEDS: DEXT 5%/0.45% NACL 1000ML 1,000 ML IV SCH (09:53)
[2018-11-24] MEDS: NITROFURANTOIN 100MG M/M CAPSULE PO SCH ×2 (10:02→22:54)
[2018-11-24] MEDS: CLOPIDOGREL 75MG TABLET PO SCH (10:02)
[2018-11-24 12:59] LABS: BASOPHILS % 1.2 % (0.0-2.0); EOSINOPHILS % 1.4 % (0.0-5.0); HEMATOCRIT. 30.5 % (36.0-48.0); HEMOGLOBIN. 10.1 g/dL (12.0-16.0); LYMPHOCYTES % 21.5 % (20.0-50.0); MEAN CORPUSCULAR VOLUME 90.5 fL (81.0-99.0); MEAN PLATELET VOLUME 8.1 fl (7.4-10.4); MONOCYTES % 12.6 % (2.0-8.0); NEUTROPHILS % 63.3 % (40.0-76.0); PLATELET 367 x1000/uL (130-400); RED BLOOD CELL COUNT 3.37 mill/uL (4.2-5.4); RED CELL DISTRIBUTION WIDTH 14.4 % (11.6-14.6)
[2018-11-24] MEDS: LOSARTAN POTASSIUM 100 MG TABLET PO SCH (17:07)
[2018-11-24 20:00] VITALS: BP 129/52
[2018-11-24] MEDS: DOCUSATE SODIUM 250MG CAPSULE PO SCH (22:54)
[2018-11-25] VITALS: BP 110/60
[2018-11-25 04:00] VITALS: BP 142/80
[2018-11-25 08:00] VITALS: BP 128/71
[2018-11-25] MEDS ORDERED: SODIUM POLYSTYRENE SULFONATE 15 G/60 ML BOT PO SCH (08:30)
[2018-11-25] MEDS: NITROFURANTOIN 100MG M/M CAPSULE PO SCH ×2 (09:03→20:59)
[2018-11-25] MEDS: ASPIRIN 81MG TABLET PO SCH (09:03)
[2018-11-25] MEDS: AMLODIPINE 5MG TABLET PO SCH (09:04)
[2018-11-25] MEDS: CLOPIDOGREL 75MG TABLET PO SCH (09:04)
[2018-11-25 09:12] LABS: BASOPHILS % 0.8 % (0.0-2.0); EOSINOPHILS % 1.8 % (0.0-5.0); HEMATOCRIT. 31.7 % (36.0-48.0); HEMOGLOBIN. 10.2 g/dL (12.0-16.0); LYMPHOCYTES % 23.3 % (20.0-50.0); MEAN CORPUSCULAR HEMOGLOBIN 29.6 pg (28.0-32.0); MEAN CORPUSCULAR VOLUME 91.6 fL (81.0-99.0); MEAN PLATELET VOLUME 7.9 fl (7.4-10.4); NEUTROPHILS % 60.1 % (40.0-76.0); PLATELET 355 x1000/uL (130-400); RED BLOOD CELL COUNT 3.46 mill/uL (4.2-5.4); RED CELL DISTRIBUTION WIDTH 14.3 % (11.6-14.6)
[2018-11-25 12:00] VITALS: BP 121/58
[2018-11-25 16:00] VITALS: BP 128/53
[2018-11-25] MEDS: LOSARTAN POTASSIUM 100 MG TABLET PO SCH (16:00)
[2018-11-25] MEDS: TRAMADOL 50MG TABLET PO PRN (16:47)
[2018-11-25 20:00] VITALS: BP 110/55
[2018-11-25] MEDS: DOCUSATE SODIUM 250MG CAPSULE PO SCH (20:59)
[2018-11-26] VITALS: BP 132/69
[2018-11-26] MEDS: DEXT 5%/0.45% NACL 1000ML 1,000 ML IV SCH ×3 (01:15→20:54)
[2018-11-26 04:00] VITALS: BP 129/63
[2018-11-26 08:00] VITALS: BP 130/54
[2018-11-26] MEDS ORDERED: DEXT 5%/0.45% NACL 500ML 500 ML IV ONE (09:30)
[2018-11-26] MEDS: CLOPIDOGREL 75MG TABLET PO SCH (09:49)
[2018-11-26] MEDS: AMLODIPINE 5MG TABLET PO SCH (09:49)
[2018-11-26] MEDS: NITROFURANTOIN 100MG M/M CAPSULE PO SCH ×2 (09:49→20:45)
[2018-11-26] MEDS: ASPIRIN 81MG TABLET PO SCH (09:49)
[2018-11-26 12:00] VITALS: BP 138/58
[2018-11-26 16:00] VITALS: BP 130/67
[2018-11-26 16:28] LABS: BASOPHILS % 0.4 % (0.0-2.0); EOSINOPHILS % 1.7 % (0.0-5.0); HEMATOCRIT. 29.4 % (36.0-48.0); HEMOGLOBIN. 9.5 g/dL (12.0-16.0); LYMPHOCYTES % 17.9 % (20.0-50.0); MEAN CORPUSCULAR HEMOGLOBIN 29.7 pg (28.0-32.0); MEAN CORPUSCULAR VOLUME 91.8 fL (81.0-99.0); MONOCYTES % 11.1 % (2.0-8.0); NEUTROPHILS % 68.9 % (40.0-76.0); PLATELET 345 x1000/uL (130-400); RED CELL DISTRIBUTION WIDTH 14.5 % (11.6-14.6)
[2018-11-26 16:37] LABS: CHLORIDE 105 mEq/L (98-107)
[2018-11-26] MEDS: TRAMADOL 50MG TABLET PO PRN (17:01)
[2018-11-26] MEDS: LOSARTAN POTASSIUM 100 MG TABLET PO SCH (17:01)
[2018-11-26 20:00] VITALS: BP_SYST 58
[2018-11-26] MEDS: DOCUSATE SODIUM 250MG CAPSULE PO SCH (20:45)
[2018-11-27] VITALS: BP 136/68
[2018-11-27 04:00] VITALS: BP 117/54
[2018-11-27] MEDS: NITROFURANTOIN 100MG M/M CAPSULE PO SCH (09:12)
[2018-11-27] MEDS: CLOPIDOGREL 75MG TABLET PO SCH (09:12)
[2018-11-27] MEDS: ASPIRIN 81MG TABLET PO SCH (09:13)
[2018-11-27] MEDS: AMLODIPINE 5MG TABLET PO SCH (09:13)
[2018-11-27 10:47] VITALS: BP 117/54
[2018-11-27 11:22] LABS: CHLORIDE 103 mEq/L (98-107)
[2018-11-27] MEDS ORDERED: TRAMADOL 50MG TABLET PO PRN (14:30)
== END 2018-11-27 13:56 | DRG 64 ==
LOC: ER 14:09 → 6EST 17:49 → ENRESERV 20:03
PROVIDERS: ADMIT Internal Medicine; ATTEND Internal Medicine
DX: I63.9 Cerebral infarction, unspecified (principal); E43 Unspecified severe protein-calorie malnutrition; I69.354 Hemiplegia and hemiparesis following cerebral infarction affecting left non-dominant side; G93.40 Encephalopathy, unspecified; I11.0 Hypertensive heart disease with heart failure; M48.061 Spinal stenosis, lumbar region without neurogenic claudication; M48.02 Spinal stenosis, cervical region; D64.9 Anemia, unspecified; E86.0 Dehydration; E87.5 Hyperkalemia; F03.90 Unspecified dementia, unspecified severity, without behavioral disturbance, psychotic disturbance, mood disturbance, and anxiety; I50.9 Heart failure, unspecified; M19.011 Primary osteoarthritis, right shoulder; R13.12 Dysphagia, oropharyngeal phase; I73.9 Peripheral vascular disease, unspecified; N28.9 Disorder of kidney and ureter, unspecified; M17.0 Bilateral primary osteoarthritis of knee; M19.012 Primary osteoarthritis, left shoulder; R62.7 Adult failure to thrive; Z66 Do not resuscitate; Z74.01 Bed confinement status; Z88.0 Allergy status to penicillin; Z88.6 Allergy status to analgesic agent; Z79.899 Other long term (current) drug therapy; Z79.82 Long term (current) use of aspirin; Z68.27 Body mass index [BMI] 27.0-27.9, adult
CPT/HCPCS: 36415; 70551; 71045; 74018; 80048; 81003; 84484; 92610; 93005; 93970; 97162; 97166; 97535; 99285; A6261